=== PATIENT | female | born 1990 | race Caucasian/White ===

== ENCOUNTER 2023-12-29 09:31 | Inpatient (IN) ==
[2023-12-29] MEDS ORDERED: Lidocaine 1% VIAL 10 MG/ML 30 ML VIAL INJ PRN (11:11)
[2023-12-29] MEDS: Lactated Ringers 1000 ml BAG 1,000 ML IV ONE (17:37)
[2023-12-29] MEDS: Lactated Ringers 1000 ml BAG 1,000 ML IV SCH (18:46)
[2023-12-29 18:53] LABS: Hematocrit 45.4 % (35-45); Hemoglobin 14.8 g/dL (11.5-14.3); Mean Corpuscular Hemoglobin 29.9 pg (27-33); Mean Corpuscular Hgb Conc 32.7 g/dL (31-36); Mean Corpuscular Volume 91.5 fL (80-97); Red Blood Count 4.97 10^6/uL (3.63-4.92); Red Cell Distribution Width 13.5 % (12-17); White Blood Count 19.3 10^3/uL (3.8-11.8)
[2023-12-29 18:54] LABS: Mean Platelet Volume 8.8 fL (7.5-11.2); Platelet Count 211 10^3/uL (150-450)
[2023-12-29] MEDS: OBEPIDURAL (200 ML) 200 ML EPIDURAL ONE (19:19)
[2023-12-29 19:26] LABS: RBC Morphology Normal (Normal)
[2023-12-29] MEDS: Phenylephrine 40 mcg/mL 10mL (400mcg) SYRINGE ONE (19:26)
[2023-12-29 20:36] LABS: Urine Appearance Clear; Urine Bilirubin Negative (Negative); Urine Blood Negative (Negative); Urine Color Yellow; Urine Glucose Negative (Negative); Urine Ketones 4+ (Negative); Urine Nitrite Negative (Negative); Urine Protein 1+ (>=30 mg/dL) (Negative); Urine Specific Gravity 1.025 (1.002-1.030); Urine Urobilinogen Negative (Negative)
[2023-12-29 20:41] LABS: Urine Bacteria Absent /HPF (Absent); Urine Red Blood Cell 1+(3-5/hpf) /HPF (0-Trace); Urine Squamous Epithelial Cell Present /HPF (Absent); Urine White Blood Cell Trace(0-5/hpf) /HPF (0-Trace)
[2023-12-29 20:53] LABS: Urine Benzodiazepine Screen None Detected (None Detect); Urine Opiates Screen None Detected (None Detect)
[2023-12-29 20:54] LABS: Urine Benzodiazepine Screen None Detected (None Detect); Urine Cannabinoids Screen None Detected (None Detect); Urine Opiates Screen None Detected (None Detect)
[2023-12-29] MEDS ORDERED: Sodium Citrate/Citric Acid LIQ 15 ML UDC PO PRN (21:09)
[2023-12-29] MEDS ORDERED: Phenylephrine 40 mcg/mL 10mL (400mcg) SYRINGE IV PUSH PRN ×2 (21:09)
[2023-12-29] MEDS: D5LR 1000 ml BAG 1,000 ML IV SCH (21:57)
[2023-12-29] MEDS: Oxytocin in LR 20,000 MILLI.UNIT/1,000 ML BAG IV SCH (22:12)
[2023-12-30] MEDS ORDERED: Oxytocin in LR 20,000 MILLI.UNIT/1,000 ML BAG IV SCH (11:45)
[2023-12-30] MEDS: Ampicillin ADVAN 2 GM in NS 0.9% 100 ml BAG 100 ML IVPB SCH (11:45)
[2023-12-30] MEDS: OBEPIDURAL (200 ML) 200 ML EPIDURAL SCH (11:50)
[2023-12-30] MEDS: Gentamicin ADULT 340 MG in NS 0.9% 100 ml BAG 100 ML IVPB ONE (11:59)
[2023-12-30] MEDS: Lactated Ringers 1000 ml BAG 1,000 ML IV SCH (12:33)
[2023-12-30] MEDS: Methylergonovine 0.2 mg AMPULE 1 ml AMP IM ONE (15:21)
[2023-12-30] MEDS: ceFOXitin 2 GM IVPREMIX 2 GM/50 ML BAG IVPB ONE (15:27)
[2023-12-30] MEDS: Oxytocin in LR 20,000 MILLI.UNIT/1,000 ML BAG IV SCH (15:44)
[2023-12-30] MEDS ORDERED: Lactated Ringers 1000 ml BAG 1,000 ML IV SCH (16:00)
[2023-12-30 16:09] LABS: Platelet Count 215 10^3/ul (150-450)
[2023-12-30 16:18] LABS: Hematocrit 33.2 % (35-45); Mean Corpuscular Hemoglobin 29.6 pg (27-33); Mean Corpuscular Volume 89.5 fL (80-97); Mean Platelet Volume 9.1 fL (7.5-11.2); Platelet Count 219 10^3/uL (150-450); Red Cell Distribution Width 13.2 % (12-17)
[2023-12-30 16:22] LABS: Activated Partial Thrombo Time 26.1 seconds (26.0-38.0); INR 0.96 (0.85-1.14)
[2023-12-30 16:42] LABS: Schistocytes ABSENT
[2023-12-30 16:48] LABS: ABS Lymphocytes 1.1 10^3/uL (1.0-4.8); ABS Monocytes 2.1 10^3/uL (0.0-0.9); ABS Neutrophils 19.8 10^3/uL (1.5-7.6); ABS Nucleated RBC 0.01 10^3/ul; Lymphocyte % 4.6 %; Nucleated Red Blood Cells % 0.1 %/100WBC (0.0-0.8)
[2023-12-31] MEDS: Dibucaine 1% OINT 28.35 GM TUBE PR PRN (00:17)
[2023-12-31] MEDS: ceFOXitin 2 GM IVPREMIX 2 GM/50 ML BAG IVPB SCH (00:17)
[2023-12-31] MEDS: Witch Hazel PAD JAR TOPICAL PRN (00:17)
[2023-12-31 09:53] LABS: Hematocrit 29.1 % (35-45); Mean Corpuscular Hgb Conc 34.2 g/dL (31-36); Mean Corpuscular Volume 90.6 fL (80-97); Mean Platelet Volume 8.9 fL (7.5-11.2); Platelet Count 214 10^3/uL (150-450); Red Blood Count 3.21 10^6/uL (3.63-4.92); White Blood Count 18.9 10^3/uL (3.8-11.8)
[2023-12-31 10:02] LABS: ABS Eosinophils 0.1 10^3/uL (0.0-0.5); ABS Neutrophils 14.8 10^3/uL (1.5-7.6); Eosinophil % 0.7 %; Lymphocyte % 10.6 %
[2023-12-31] MEDS: Lactated Ringers 1000 ml BAG 1,000 ML IV ONE (10:52)
[2023-12-31] MEDS: Lidocaine 1.5% EPI 1:200,000 30 ML SDV ONE (10:52)
[2023-12-31] MEDS: Buffered Lidocaine 1% SYRIN 1 ml INTRADERM ONE (10:52)
[2023-12-31] MEDS: Methylergonovine 0.2 mg AMPULE 1 ml AMP ONE (10:53)
[2023-12-31] MEDS: RHO D Immune Globulin (HUMAN) 300 MCG = 1,500 I.U. INJ IM PRN (16:10)
[2023-12-31] MEDS: Oxytocin in LR 20,000 MILLI.UNIT/1,000 ML BAG IV ONE (18:32)
[2024-01-01 09:22] VITALS: BP 125/65
[2024-01-01] MEDS: Polyethylene Glycol 3350 17 GM PACKET PO PRN (11:44)
== END 2024-01-01 18:18 | disposition home or self-care (01) | DRG 768 ==
LOC: MCHOBOUT 09:31 → MCHOB 10:43
PROVIDERS: ATTEND Midwife